=== PATIENT | female | born 1975 | race Hispanic/Latino ===

== ENCOUNTER 2020-11-09 18:38 | Inpatient (IN) | payer BC ==
[2020-11-09] MEDS ORDERED: METHYLPREDNISOLONE 125 MG INJ ONE (20:07)
[2020-11-09] MEDS ORDERED: NA CHLORIDE 0.9% 500 ML ONE (20:07)
--- NOTE | 2020-11-09 20:19 | RAD REPORT ---
EXAM DESCRIPTION: Yumi Single View11/09/2020 8:08 pm CLINICAL HISTORY: cough COMPARISON: none FINDINGS: [id number] bilateral pulmonary opacities. The heart is normal size IMPRESSION: [id number] bilateral pulmonary opacities probably pneumonia
[2020-11-09 20:36] LABS: Absolute Lymphocytes (CBC) 1.1 K/uL (0.7-4.9); Basophils % 0.1 % (0-1.3); Hematocrit 36.2 % (36.0-45.0); Lymphocytes % 14.6 % (15.3-44.8); MPV 8.4 fL (7.6-11.3); RBC Red Blood Cell Count 4.12 M/uL (3.86-4.86)
--- NOTE | 2020-11-09 20:58 | ER ---
Nurse's Notes [facility] – [place], [place] Name: Idalia Wilson Age: 45 yrs Sex: Female : 1975 Arrival Date: 11/09/2020 Time: 18:43 Bed 17 Private MD: Diagnosis: Pneumonia due to SARS-associated coronavirus;Hypoxemia;Dehydration Presentation: 11/09 18:49 Chief complaint: Patient states: SOB with extertion, 87 % on RA after walking to [facility] triage, took approximately 30 seconds to increase O2 to 95% on RA. Coronavirus screen: Client denies travel out of the [place] in the last 14 days. shortness of breath, Client presents with at least one sign or symptom that may indicate coronavirus-19. Standard/surgical mask placed on the client. Provider contacted for isolation considerations. Client reports previous positive COVID test result. Date of collection: November 05, 2020. Ebola Screen: No symptoms or risks identified at this time. Initial Sepsis Screen: Does the patient meet any 2 criteria? RR > 20 per min. HR > 90 bpm. Does the patient have a suspected source of infection? No. Patient's initial sepsis screen is negative. Risk Assessment: Do you want to hurt yourself or someone else? Patient reports no desire to harm self or others. Onset of symptoms was November 05, 2020. Care prior to arrival: None. 18:49 Method Of Arrival: Ambulatory [facility] 18:49 Acuity: GARRICK 2 [facility] RN RELIEF CHARGE: 18:52 LMP N/A - Hysterectomy [facility] Historical: - Allergies: 18:52 No Known Allergies; jl7 - PMHx: 18:52 Hypertensive disorder; Diabetes mellitus; jl7 - Immunization history:: Client reports receiving the 1st dose of the Covid vaccine, October 2020 Moderna. - Social history:: Smoking status: Patient denies any tobacco usage or history of. - Family history:: not pertinent. - Hospitalizations: : No recent hospitalization is reported. Screenin:39 Abuse screen: Denies threats or abuse. Denies injuries from another. Nutritional ms4 screening: No deficits noted. Tuberculosis screening: No symptoms or risk factors identified. Fall Risk None identified. Assessment: 20:39 Pain: Denies pain. Cardiovascular: Reports chest pain, shortness of breath, Rhythm is ms4 regular. Respiratory: Airway is patent Respiratory effort is labored, Breath sounds are diminished bilaterally. Vital Signs: 18:49 BP 110 / 62; Pulse 111; Resp 22; Temp 97.5; Pulse Ox 87% ; Weight 107.05 kg; Height 5 jl7 ft. 4 in. (162.56 cm); Pain 0/10; 20:41 BP 110 / 66; Pulse 90; Resp 22; Temp 98.4; Pulse Ox 98% 2 lpm ; Pain 0/10; ms4 18:49 Body Mass Index 40.51 (107.05 kg, 162.56 cm) jl7 ED Course: 18:43 Patient arrived in ED. as 18:52 Triage completed. jl7 18:52 Arm band placed on right wrist. jl7 18:57 Jai Lang MD is Attending Physician. rn 19:42 Jyoti Hua RN is Primary Nurse. ms4 19:42 BMP Sent. ms4 19:42 Blood Culture Adult (2) Sent. ms4 19:42 C-Reactive Protein Sent. ms4 19:42 CBC with Diff Sent. ms4 19:42 D-Dimer Sent. ms4 19:42 Ferritin Sent. ms4 19:42 Inserted saline lock: 20 gauge in right forearm, using aseptic technique. Blood ms4 collected. 20:07 CXR XRAY In Process Unspecified. EDMS 20:57 Baudilio Garza MD is Hospitalizing Provider. rn 11/10 00:13 Troponin (emerg Dept Use Only) Sent. ms4 Administered Medications: 11/09 19:49 Drug: SOLU-Medrol (methylPrednisoLONE) 125 mg Route: IVP; Site: right forearm; ms4 20:38 Follow up: Response: No adverse reaction ms4 19:49 Drug: NS 0.9% 500 ml Route: IV; Rate: bolus; Site: right forearm; ms4 20:38 Follow up: IV Intake: 500ml ms4 20:38 Follow up: Response: No adverse reaction ms4 11/10 00:18 Drug: Tussionex Pennkinetic ER (chlorpheniramine-hydrocodone) Suspension 5 ml Route: PO;ms4 00:18 Drug: Magnesium Sulfate 1 grams Route: IVPB; Infused Over: 1 hrs; Site: left ms4 antecubital; Intake: 11/09 20:38 IV: 500ml; Total: 500ml. ms4 Outcome: 20:58 Decision to Hospitalize by Provider. rn 11/11 18:04 Patient left the ED. ap3 Signatures: Dispatcher [employer] Magnolia Bowers Roman, MD MD rn Leal, Jahala RN RN jl7 Whit Cortes RN RN ap3 Jyoti Hua RN RN ms4
--- NOTE | 2020-11-09 20:59 | EDPHYS ---
Physician Documentation [facility] Name: Idalia Wilson Age: 45 yrs Sex: Female : 1975 Arrival Date: 11/09/2020 Time: 18:43 Bed 17 Private MD: ED Physician Jai Lang HPI: 11/09 19:19 This 45 yrs old Female presents to ER via Ambulatory with complaints of Cough, rn Shortness Of Breath - covid+. 19:19 The patient or guardian reports cough, difficulty breathing. Onset: The rn symptoms/episode began/occurred 1 week(s) ago. Severity of symptoms: At their worst the symptoms were moderate, in the emergency department the symptoms are unchanged. Modifying factors: The symptoms are alleviated by nothing, the symptoms are aggravated by exertion. Associated signs and symptoms: Pertinent positives: diarrhea, nausea, Cough, Pertinent negatives: chest pain, vomiting. The patient has not experienced similar symptoms in the past. The patient has been recently seen by a physician:. Reports symptoms for 1 week, tested positive for Covid over the weekend, worsening shortness of breath especially with exertion. Has diabetes and hypertension but no chronic lung issues.. 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 - Social history:: Smoking status: Patient denies any tobacco usage or history of. - Family history:: not pertinent. - Hospitalizations: : No recent hospitalization is reported. ROS: 19:19 Constitutional: Positive for chills Eyes: Negative for injury, pain, redness, and academic intern, ENT: Positive for congestion Cardiovascular: Negative for chest pain, palpitations, and edema, Respiratory: Positive for cough and shortness of breath Abdomen/GI: Positive for positive for nausea and diarrhea : Negative for injury, bleeding, discharge, and swelling, MS/Extremity: Negative for injury and deformity, Skin: Negative for injury, rash, and discoloration, Neuro: Positive for generalized weakness no focal neurological deficits 19:19 All other systems are negative. Exam: 19:19 Constitutional: This is a well developed, well nourished patient who is awake, alert, rn mild tachypnea Head/Face: Normocephalic, atraumatic. Eyes: Pupils equal round and reactive to light, extra-ocular motions intact. Lids and lashes normal. Conjunctiva and sclera are non-icteric and not injected. Cornea within normal limits. Periorbital areas with no swelling, redness, or edema. ENT: No stridor Cardiovascular: Tachycardic, regular Respiratory: Mild tachypnea no retractions Abdomen/GI: Soft, non-tender Skin: Warm, dry, no cyanosis MS/ Extremity: Pulses equal, no cyanosis. Neurovascular intact. Full, normal range of motion. Equal circumference. Neuro: Awake and alert, GCS 15 20:36 ECG was reviewed by the Attending Physician. rn Vital Signs: 18:49 BP 110 / 62; Pulse 111; Resp 22; Temp 97.5; Pulse Ox 87% ; Weight 107.05 kg; Height 5 jl7 ft. 4 in. (162.56 cm); Pain 0/10; 20:41 BP 110 / 66; Pulse 90; Resp 22; Temp 98.4; Pulse Ox 98% 2 lpm ; Pain 0/10; ms4 18:49 Body Mass Index 40.51 (107.05 kg, 162.56 cm) jl7 MDM: 18:57 Patient medically screened. rn 20:54 Differential Diagnosis: Bronchitis Upper Respiratory Infection Viral Syndrome Pneumonia.rn 20:56 Data reviewed: vital signs, nurses notes, lab test result(s), EKG, radiologic studies, rn plain films, and as a result, I will admit patient. Data interpreted: monitor worker: rate is 90 beats/min, rhythm is normal sinus rhythm, regular, with no ectopy, Interpretation: normal rate, normal rhythm, Pulse oximetry: on room air is 87 %. Interpretation: hypoxia. Plan: O2 by NC applied. Test interpretation: by ED physician or midlevel provider: ECG, plain radiologic studies, Chest x-ray with bilateral pulmonary opacities consistent with Covid pneumonia. Counseling: I had a detailed discussion with the patient and/or guardian regarding: the historical points, exam findings, and any diagnostic results supporting the discharge/admit diagnosis, lab results, radiology results, the need for further work-up and treatment in the hospital. Response to treatment: the patient's symptoms have mildly improved after treatment, and as a result, I will admit patient. Admission orders: after a detailed discussion of the patient's condition and case, the admit orders are written by me. ED course: Patient with Covid pneumonia, tachypnea, hypoxemia. Will admit to hospitalist service for further care.. 11/10 00:08 ED course: Patient all of a sudden began to complain of increased shortness of breath rn and increased cough. Became diaphoretic. EKG, troponin and CT PE protocol added.. 11/09 19:09 Order name: BMP rn 11/09 19:09 Order name: Blood Culture Adult (2) 11/09 19:09 Order name: C-Reactive Protein 11/09 19:09 Order name: CBC with Diff 11/09 19:09 Order name: D-Dimer 11/09 19:09 Order name: Ferritin 11/09 19:09 Order name: LFT's; Complete Time: 23:54 11/09 19:09 Order name: Lactate; Complete Time: 23:54 11/09 19:09 Order name: PT-INR; Complete Time: 23:54 11/09 19:09 Order name: Procalcitonin; Complete Time: 23:54 11/09 19:09 Order name: Ptt, Activated; Complete Time: 23:54 11/09 19:09 Order name: Troponin (emerg Dept Use Only); Complete Time: 23:54 11/09 19:10 Order name: Basic Metabolic Panel; Complete Time: 23:54 EDOR 11/09 19:10 Order name: Blood Culture [facility] 11/09 19:10 Order name: C-Reactive Protein; Complete Time: 23:54 EDOR 11/09 19:10 Order name: CBC with Automated Diff; Complete Time: 23:54 EDOR 11/09 19:10 Order name: D-Dimer; Complete Time: 23:54 EDOR 11/09 19:10 Order name: Ferritin; Complete Time: 23:54 EDOR 11/10 00:06 Order name: Troponin (emerg Dept Use Only) rn 11/10 00:10 Order name: Procalcitonin; Complete Time: 01:06 EDOR 11/10 00:25 Order name: Troponin (Emerg Dept Use Only); Complete Time: 01:06 EDOR 11/10 04:01 Order name: CBC with Automated Diff EDMS 11/10 04:46 Order name: Comprehensive Metabolic Panel EDMS 11/10 04:46 Order name: Phosphorus EDMS 11/10 04:46 Order name: Lipid Profile EDMS 11/10 04:46 Order name: C-Reactive Protein EDMS 11/10 04:46 Order name: T4 Free EDMS 11/10 04:46 Order name: Magnesium EDMS 11/10 04:46 Order name: Thyroid Stimulating Hormone EDMS 11/10 04:46 Order name: Ferritin EDMS 11/09 19:09 Order name: CXR XRAY; Complete Time: 20:20 rn 11/09 19:09 Order name: EKG; Complete Time: 19:10 rn 11/09 19:09 Order name: Cardiac monitoring; Complete Time: 19:42 rn 11/09 19:09 Order name: Droplet/Contact Precautions; Complete Time: 19:23 rn 11/09 19:09 Order name: EKG - Nurse/Tech; Complete Time: 19:23 rn 11/09 19:09 Order name: IV Start; Complete Time: 19:42 rn 11/09 19:09 Order name: Labs collected and sent; Complete Time: 19:42 rn 11/09 19:09 Order name: O2 Per Protocol; Complete Time: 19:23 rn 11/09 19:09 Order name: O2 Sat Monitoring; Complete Time: 19:23 rn 11/09 21:22 Order name: CONS Physician Consult EDMS 11/10 00:06 Order name: CT Chest For PE Angio rn 11/10 00:06 Order name: EKG; Complete Time: 00:07 rn 11/10 00:06 Order name: EKG - Nurse/Tech; Complete Time: 00:12 rn 11/10 04:51 Order name: Manual Differential EDMS 11/10 08:05 Order name: Glucose, Ancillary Testing EDMS 11/10 11:44 Order name: CT EDMS 11/10 12:56 Order name: Glucose, Ancillary Testing EDMS 11/10 17:40 Order name: Glucose, Ancillary Testing EDMS 11/10 22:59 Order name: Glucose, Ancillary Testing EDMS 11/11 07:12 Order name: Hemoglobin A1c EDMS 11/11 08:21 Order name: Glucose, Ancillary Testing EDMS 11/11 08:55 Order name: CBC with Automated Diff EDMS 11/11 09:26 Order name: Basic Metabolic Panel EDMS 11/11 09:26 Order name: C-Reactive Protein EDMS 11/11 09:26 Order name: Ferritin EDMS 11/11 09:27 Order name: RAD EDOR 11/11 12:41 Order name: Glucose, Ancillary Testing EDMS 11/11 16:56 Order name: Glucose, Ancillary Testing EDMS EC/11 20:36 Rate is 99 beats/min. Rhythm is regular. QRS [place] is Normal. OK interval is normal. QRS rn interval is normal. QT interval is normal. No Q waves. T waves are Normal. No ST changes noted. Clinical impression: Normal ECG. Interpreted by me. Reviewed by me. Administered Medications: 19:49 Drug: SOLU-Medrol (methylPrednisoLONE) 125 mg Route: IVP; Site: right forearm; ms4 20:38 Follow up: Response: No adverse reaction ms4 19:49 Drug: NS 0.9% 500 ml Route: IV; Rate: bolus; Site: right forearm; ms4 20:38 Follow up: IV Intake: 500ml ms4 20:38 Follow up: Response: No adverse reaction ms4 11/10 00:18 Drug: Tussionex Pennkinetic ER (chlorpheniramine-hydrocodone) Suspension 5 ml Route: PO;ms4 00:18 Drug: Magnesium Sulfate 1 grams Route: IVPB; Infused Over: 1 hrs; Site: left ms4 antecubital; Disposition Summary: 11/09/20 20:58 Hospitalization Ordered Hospitalization Status: Inpatient Admission rn Provider: Baudilio Garza rn Condition: Fair rn Problem: new rn Symptoms: have improved rn Bed/Room Type: Standard rn Location: [facility] ER HOLD(11/09/20 23:43) tl1 Room Assignment: ERHOLD-(11/09/20 23:43) tl1 Diagnosis - Pneumonia due to SARS-associated coronavirus rn - Hypoxemia rn - Dehydration rn Forms: - Medication Reconciliation Form rn - SBAR form rn Signatures: Dispatcher [employer] [facility] Jai Lang MD MD rn Lasagna, Tonya, RN RN tl1 Chago Santos RN RN jl7 Jyoti Hua, RN RN ms4 Corrections: (The following items were deleted from the chart) 11/09 19:30 19:19 Constitutional: This is a well developed, well nourished patient who is awake, rn alert, mild tachypnea Head/Face: Normocephalic, atraumatic. Eyes: Pupils equal round and reactive to light, extra-ocular motions intact. Lids and lashes normal. Conjunctiva and sclera are non-icteric and not injected. Cornea within normal limits. Periorbital areas with no swelling, redness, or edema. ENT: No stridor Cardiovascular: Tachycardic, regular Respiratory: Mild tachypnea no retractions Abdomen/GI: Soft, non-tender Skin: Warm, dry, no cyanosis MS/ Extremity: Pulses equal, no cyanosis. Neurovascular intact. Full, normal range of motion. Equal circumference. Neuro: Awake and alert, GCS 15 rn 23:43 20:58 Telemetry/MedSurg (Inpatient) rn tl1 23:43 20:58 rn tl1
[2020-11-09 21:02] LABS: Protime INR 1.15
[2020-11-09 21:22] LABS: ALT/SGPT 68 U/L (12-78); AST/SGOT 55 U/L (15-37); Albumin 3.3 g/dL (3.4-5.0); Alkaline Phosphatase 71 U/L (45-117); BUN Blood Urea Nitrogen 8 mg/dL (7-18); Bicarbonate 25 mmol/L (21-32); Bilirubin Direct 0.3 mg/dL (0-0.2); Bilirubin Total 0.5 mg/dL (0.2-1.0); Glucose Level 275 mg/dL (74-106); Potassium 3.5 mmol/L (3.5-5.1); Protein, Total 8.4 g/dL (6.4-8.2); Sodium Level 131 mmol/L (136-145); Troponin (Emerg Dept Use Only) < 0.02 ng/mL (0.0-0.045)
[2020-11-09 22:16] VITALS: BMI 40.5
[2020-11-09] MEDS ORDERED: MELATONIN 5 MG TABLET PO PRN (22:16)
[2020-11-09] MEDS ORDERED: ONDANSETRON 4 MG/2 ML VIAL IV PRN (22:16)
[2020-11-09] MEDS ORDERED: ACETAMINOPHEN 500 MG TAB PO PRN (22:16)
[2020-11-09] MEDS ORDERED: ALBUTEROL 2.5 MG/3 ML NEB SOL NEB PRN (22:16)
[2020-11-09] MEDS ORDERED: MORPHINE 2 MG/ML SYR IV PRN (22:16)
[2020-11-09 22:18] LABS: Ferritin 921.6 ng/mL (8-388)
--- NOTE | 2020-11-09 22:19 | P.HP ---
Certification for Inpatient Patient admitted to: Inpatient With expected LOS: >2 Midnights Patient will require the following post-hospital care: None Practitioner: I am a practitioner with admitting privileges, knowledge of patient current condition, hospital course, and medical plan of care. Services: Services provided to patient in accordance with Admission requirements found in Title 42 Section 412.3 of the Code of Federal Regulations <Wander Chung - Last Filed: 11/09/20 22:13> Patient History Date of Service: 11/09/20 Primary Care Provider: Ulysses Reason for admission: covid pneumonia History of Present Illness: Ms. Wilson is a 45 yo F with DM and HTN who presents with 1 week of cough and SO B. She tested positive for COVID on 11/05. Initial sats 87% on room air, now 98% on 2L O2. She reports WEISS, fever, nausea, anorexia, diarrhea. Denies wheezing and pleurtic pain. CXR shows mild to moderate bilateral pulmonary opacities probably pneumonia. Na 131, Cl 97, Glu 275, Dbili 0.3, AST 55, CRP 252. - Past Medical/Surgical History Diabetic: Yes -: DM -: HTN -: C section -: hysterectomy - Family History Mother -: Liver disease Father -: Cancer Sister -: Kidney disease - Social History Smoking Status: Never smoker Alcohol use: No CD- Drugs: No Caffeine use: No Place of Residence: Home <Wander Chung - Last Filed: 11/09/20 22:13> Date of Service: 11/09/20 <Baudilio Garza - Last Filed: 11/11/20 07:06> Allergies meperidine HCl [From Demerol] Allergy (Mild, Verified 11/24/11 16:01) Hives Review of Systems General: Fever, Chills, Sweats, Weakness, Malaise Respiratory: Cough, Shortness of Breath, SOB with Excertion Gastrointestinal: Nausea, Diarrhea <Wander Chung Alexander - Last Filed: 11/09/20 22:13> Physical Examination - Physical Exam General: Alert, In no apparent distress HEENT: Atraumatic, PERRLA, Mucous membr. moist/pink, EOMI, Sclerae nonicteric Neck: Supple, 2+ carotid pulse no bruit, No LAD, Without JVD or thyroid abnormality Respiratory: Diminished, Expiratory wheezes Cardiovascular: Regular rate/rhythm, Normal S1 S2 Gastrointestinal: Normal bowel sounds, No tenderness Musculoskeletal: No tenderness Integumentary: No rashes Neurological: Normal gait, Normal speech, Normal strength at 5/5 x4 extr, Normal tone, Normal affect Lymphatics: No axilla or inguinal lymphadenopathy - Studies Laboratory Data (last 24 hrs) 11/09/20 19:36: WBC 7.30, Hgb 12.3, Hct 36.2, Plt Count 225 11/09/20 19:36: Sodium 131 L, Potassium 3.5, BUN 8, Creatinine 0.71, Glucose 275 H, Total Bilirubin 0.5, AST 55 H, ALT 68, Alkaline Phosphatase 71 11/09/20 09:19: PT 13.3 H, INR 1.15, APTT 29.5 <Wander Chung - Last Filed: 11/09/20 22:13> Assessment and Plan - Problems (Diagnosis) (1) Pneumonia due to COVID-19 virus Current Visit: Yes Status: Acute (2) Diabetes Current Visit: Yes Status: Chronic Qualifiers: Diabetes mellitus type: type 2 Diabetes mellitus group home insulin use: without group home use Diabetes mellitus complication status: without complication Qualified Code(s): E11.9 - Type 2 diabetes mellitus without complications (3) HTN (hypertension) Current Visit: Yes Status: Chronic Qualifiers: Hypertension type: primary hypertension Qualified Code(s): I10 - Essential (primary) hypertension - Plan pulm consulted, respiratory consulted continue O2 as needed continue IV steroids, covid supplements, ivermectin BP stable, continue to monitor Accuchecks and sliding scale insulin DVT ppx Discharge Plan: Home Plan to discharge in: 48 Hours - Advance Directives Does patient have a Living Will: No Does patient have a Durable POA for Healthcare: No - Code Status/Comfort Care Code Status Assessed: Yes (full code ) Critical Care: No Time Spent Managing Pts Care (In Minutes): 70 <Wander Chung - Last Filed: 11/09/20 22:13> - Problems (Diagnosis) (1) Hypoxemia Current Visit: Yes Status: Acute (2) Pneumonia due to COVID-19 virus Current Visit: Yes Status: Acute (3) Diabetes Current Visit: Yes Status: Chronic Qualifiers: Diabetes mellitus type: type 2 Diabetes mellitus group home insulin use: without group home use Diabetes mellitus complication status: without complication Qualified Code(s): E11.9 - Type 2 diabetes mellitus without complications (4) HTN (hypertension) Current Visit: Yes Status: Chronic Qualifiers: Hypertension type: primary hypertension Qualified Code(s): I10 - Essential (primary) hypertension <Baudilio Garza - Last Filed: 11/11/20 07:06> Date of Service: 11/10/20 Subjective Agree with plan of care as mentioned above Review of Systems 10-point ROS is otherwise unremarkable Physical Examination - Vital Signs Reviewed - Physical Exam General: Alert, In no apparent distress, Oriented x3 Respiratory: Diminished Cardiovascular: Regular rate/rhythm, Normal S1 S2, No murmurs Gastrointestinal: Normal bowel sounds, Soft and benign, Non-distended, No tenderness Musculoskeletal: No clubbing, No swelling, No tenderness Neurological: Sensation intact, Cranial nerves 3-12 intact - Studies Medications List Reviewed: Yes Assessment & Plan - Problems (Diagnosis) (1) Hypoxemia Current Visit: Yes Status: Acute (2) Pneumonia due to COVID-19 virus Current Visit: Yes Status: Acute (3) Diabetes Current Visit: Yes Status: Chronic Qualifiers: Diabetes mellitus type: type 2 Diabetes mellitus manager long term care insulin use: without group home use Diabetes mellitus complication status: without complication Qualified Code(s): E11.9 - Type 2 diabetes mellitus without complications (4) HTN (hypertension) Current Visit: Yes Status: Chronic Qualifiers: Hypertension type: primary hypertension Qualified Code(s): I10 - Essential (primary) hypertension - Plan 1. Continue with IV steroids at this time. Arrange for home oxygen. 2. Monitor inflammatory markers 3. Repeat chest x-ray 4. O2 per protocol 5. Strict blood pressure and blood sugar control 6. Continue with albuterol inhaler therapy; also supportive care 7. GI and DVT prophylaxis Discharge Plan: Home Plan to discharge in: Greater than 2 days - Advance Directives Does patient have a Living Will: No Does patient have a Durable POA for Healthcare: No - Code Status/Comfort Care Code Status Assessed: Yes Code Status: Full Code Critical Care: No Time Spent Managing PTS Care (In Minutes): 35 <Baudilio Garzazal - Last Filed: 11/11/20 07:06>
[2020-11-10] MEDS ORDERED: HYDROCODONE/CHLORPHEN 5 ML/OSYR ONE (00:37)
[2020-11-10] MEDS ORDERED: Magnesium Sulfate 2gm IVPB 2 G/50 ML BAG IV ONE (00:38)
[2020-11-10 03:55] LABS: Absolute Lymphocytes (CBC) 0.5 K/uL (0.7-4.9); Basophils % 0.1 % (0-1.3); Hematocrit 35.7 % (36.0-45.0); Lymphocytes % 7.7 % (15.3-44.8); MPV 8.1 fL (7.6-11.3); RBC Red Blood Cell Count 3.98 M/uL (3.86-4.86)
[2020-11-10 04:45] LABS: ALT/SGPT 66 U/L (12-78); AST/SGOT 48 U/L (15-37); Alkaline Phosphatase 75 U/L (45-117); BUN Blood Urea Nitrogen 11 mg/dL (7-18); Bicarbonate 23 mmol/L (21-32); Bilirubin Total 0.5 mg/dL (0.2-1.0); Ferritin 921.7 ng/mL (8-388); Glucose Level 359 mg/dL (74-106); HDL Cholesterol 25 mg/dL (40-60); LDL Cholesterol, Calculated 107 (<130); Magnesium 2.6 mg/dL (1.8-2.4); Phosphorus 3.7 mg/dL (2.5-4.9); Potassium 4.2 mmol/L (3.5-5.1); Protein, Total 8.3 g/dL (6.4-8.2); Sodium Level 132 mmol/L (136-145)
[2020-11-10 04:49] LABS: Blood Morphology Comment NOT SEEN (NOT SEEN); Platelet Estimate ADEQ
[2020-11-10] MEDS ORDERED: KCL 20 MEQ/100 mL IVPB 20 MEQ/100 ML BAG IV SCH (06:00)
[2020-11-10] MEDS: INSULIN -REGULAR HUMAN 50 UNIT/0.5 ML ML SQ SCH ×4 (07:30→21:00)
[2020-11-10] MEDS ORDERED: THIAMINE HCL 100 MG TABLET ONE (08:48)
[2020-11-10] MEDS ORDERED: ASCORBIC ACID 500 MG TABLET ONE ×4 (08:48→20:39)
[2020-11-10] MEDS ORDERED: VITAMIN D 1000 UNIT TAB ONE (08:49)
[2020-11-10] MEDS ORDERED: FAMOTIDINE 20 MG TAB ONE ×2 (08:49→20:39)
[2020-11-10] MEDS ORDERED: ZINC SULFATE 220 MG CAP ONE (08:49)
[2020-11-10] MEDS ORDERED: METHYLPREDNISOLONE 40 MG INJ ONE (08:49)
[2020-11-10] MEDS ORDERED: ENOXAPARIN 40 MG/0.4 ML SQ ONE (08:51)
[2020-11-10] MEDS ORDERED: INSULIN -REGULAR HUMAN 50 UNIT/0.5 ML ML ONE ×4 (08:51→20:40)
[2020-11-10] MEDS: ENOXAPARIN 40 MG/0.4 ML SQ SCH (08:52)
[2020-11-10] MEDS: METHYLPREDNISOLONE 125 MG INJ IV SCH ×2 (08:52→21:00)
[2020-11-10] MEDS: VITAMIN D 1000 UNIT TAB PO SCH (08:52)
[2020-11-10] MEDS: FAMOTIDINE 20 MG TAB PO SCH ×2 (08:52→21:00)
[2020-11-10] MEDS: THIAMINE HCL 100 MG TABLET PO SCH (08:52)
[2020-11-10] MEDS: ASCORBIC ACID 500 MG TABLET PO SCH ×4 (08:52→21:00)
[2020-11-10] MEDS: ZINC SULFATE 220 MG CAP PO SCH (08:52)
[2020-11-10] MEDS: ASPIRIN EC 81 MG TAB PO SCH (09:00)
[2020-11-10] MEDS ORDERED: IVERMECTIN 3 MG TABLET PO SCH (09:00)
[2020-11-10] MEDS: BENZONATATE 100 MG CAP PO PRN ×2 (09:23→22:05)
[2020-11-10] MEDS ORDERED: BENZONATATE 100 MG CAP PO ONE ×2 (09:41→22:27)
--- NOTE | 2020-11-10 11:11 | P.CNS ---
Date of Consult: 11/10/20 Reason for Consult: ALICE beasley Primary Care Provider: Ulysses Chief Complaint: covid pneumonia History of Present Illness: Age 45 with metablic synd AW cough and sob/AW resp faiure/ fever /norexia Allergies meperidine HCl [From Demerol] Allergy (Mild, Verified 11/24/11 16:01) Hives - Past Medical/Surgical History Diabetic: Yes -: DM -: HTN -: C section -: hysterectomy - Family History Mother Medical History: Liver disease Father Medical History: Cancer Sister Medical History: Kidney disease - Social History Alcohol use: No CD- Drugs: No Caffeine use: No Place of Residence: Home Review of Systems General: Weakness, Malaise Physical Examination Temp Pulse Resp BP Pulse Ox 98.3 F 86 24 H 114/73 95 11/10/20 08:00 11/10/20 08:00 11/10/20 08:00 11/10/20 08:00 11/10/20 08:00 General: Alert, In no apparent distress, Oriented x3 Laboratory Data (last 24 hrs) 11/09/20 19:36: WBC 7.30, Hgb 12.3, Hct 36.2, Plt Count 225 11/09/20 19:36: Sodium 131 L, Potassium 3.5, BUN 8, Creatinine 0.71, Glucose 275 H, Total Bilirubin 0.5, AST 55 H, ALT 68, Alkaline Phosphatase 71 11/09/20 09:19: PT 13.3 H, INR 1.15, APTT 29.5 - Problems (1) Pneumonia due to COVID-19 virus Current Visit: Yes Status: Acute Plan: Age 45 AW covid pneumonia/ Pn nasal cannula/ poss DC home am/ minimla changes on CT
--- NOTE | 2020-11-10 11:43 | RAD REPORT ---
EXAM DESCRIPTION: CT - Chest For Pe Angio - 11/10/2020 6:32 am CLINICAL HISTORY: CHEST PAIN. COMPARISON: None. TECHNIQUE: CTA of the chest was performed following intravenous administration of iodinated contrast . Axial soft tissue and lung window, and coronal and sagittal soft tissue window reconstructions were created and sent to PACS. 3D postprocessing was performed on an independent workstation, with images sent to PACS for subsequen t review. This exam was performed according to our departmental dose-optimization program, which includes autom ated exposure control, adjustment of the mA and/or kV according to patient size and/or use of iterati ve reconstruction technique. FINDINGS: Vascular: The pulmonary arteries are adequately opacified to the lobar level. No CT eviden ce of acute pulmonary thromboembolism. No evidence of aortic aneurysm or dissection. Lungs and pleura: Numerous small regions of groundglass opacification and interstitial thickening thr oughout the lungs, with a peripheral predominance. Mild motion degradation through the lung bases. No pleural effusion. No pneumothorax. Mediastinum and neck: No mediastinal lymphadenopathy by CT size criteria. Unremarkable appearance of the thyroid gland. Cardiac: No cardiomegaly or pericardial effusion. Abdomen: Diffuse hepatic steatosis. Musculoskeletal: No concerning osseous abnormality. IMPRESSION: 1. No CTA evidence of acute pulmonary thromboembolism. 2. Numerous small regions of groundglass opacification and interstitial thickening throughout the l ungs, with a peripheral predominance. Correlate for infectious/inflammatory etiology. 3. Diffuse hepatic steatosis. Electronically signed by: Erlinda Calvin MD 11/10/2020 1:01 AM CDT Due to temporary technical issues with the PACS/Fluency reporting system, reports are being signed by the in house radiologist without review as a courtesy to ensure prompt reporting. The interpreting r adiologist is fully responsible for the content of the report.
[2020-11-10] MEDS ORDERED: ASPIRIN 81 MG CHEWABLE TABLET ONE (13:14)
[2020-11-10] MEDS ORDERED: METHYLPREDNISOLONE 125 MG INJ ONE (20:38)
[2020-11-10] MEDS ORDERED: MELATONIN 5 MG TABLET PO ONE (22:27)
[2020-11-11 05:49] VITALS: TEMP 97.8
--- NOTE | 2020-11-11 07:05 | P.PN ---
Subjective Date of Service: 11/10/20 Patient is a 45-year-old female who presented to the hospital with hypoxemia. She was diagnosed in [place] a week ago. She is band doing okay but she has notice her oxygen level going down. She decided to come into the emergency room for further evaluation. She has been having some pleuritic chest pain. CT of the chest was negative. She has got 1 dose of the vaccine. She believes it with the Moderna. She is requiring 4 L of oxygen. Will try to get home oxygen setup an as long as there are no changes in her labs in her x-ray I anticipate discharge home in the morning. Will also monitor her inflammatory markers. Imaging studies with inflammatory changes. Will continue to monitor. Review of Systems 10-point ROS is otherwise unremarkable Physical Examination - Vital Signs Temperature: 97.8 F Blood Pressure: 110/86 Pulse: 72 Respirations: 20 Pulse Ox (%): 92 - Physical Exam General: Alert, In no apparent distress, Oriented x3 Respiratory: Diminished Cardiovascular: Regular rate/rhythm, Normal S1 S2, No murmurs Gastrointestinal: Normal bowel sounds, Soft and benign, Non-distended, No tenderness Musculoskeletal: No clubbing, No swelling, No tenderness Neurological: Sensation intact, Cranial nerves 3-12 intact - Studies Medications List Reviewed: Yes Assessment & Plan - Problems (Diagnosis) (1) Hypoxemia Current Visit: Yes Status: Acute (2) Pneumonia due to COVID-19 virus Current Visit: Yes Status: Acute (3) Diabetes Current Visit: Yes Status: Chronic Qualifiers: Diabetes mellitus type: type 2 Diabetes mellitus intermediate frame tender insulin use: without snf use Diabetes mellitus complication status: without complication Qualified Code(s): E11.9 - Type 2 diabetes mellitus without complications (4) HTN (hypertension) Current Visit: Yes Status: Chronic Qualifiers: Hypertension type: primary hypertension Qualified Code(s): I10 - Essential (primary) hypertension - Plan 1. Continue with IV steroids 2. Monitor inflammatory markers 3. Repeat chest x-ray 4. O2 per protocol 5. Strict blood pressure and blood sugar control 6. Continue with albuterol inhaler therapy; also supportive care 7. Resume antidepressant 8. Encourage patient to get her anti by his level checked in 3-6 months to see if she needs to get her 2nd dose of vaccine. 9. GI and DVT prophylaxis Discharge Plan: Home Plan to discharge in: Greater than 2 days - Advance Directives Does patient have a Living Will: No Does patient have a Durable POA for Healthcare: No - Code Status/Comfort Care Code Status Assessed: Yes Code Status: Full Code Critical Care: No Time Spent Managing PTS Care (In Minutes): 35
[2020-11-11] MEDS: INSULIN -REGULAR HUMAN 50 UNIT/0.5 ML ML SQ SCH ×2 (07:30→11:30)
[2020-11-11] MEDS ORDERED: METFORMIN HCL 500 MG TAB PO SCH (08:00)
[2020-11-11] MEDS ORDERED: GLIMEPIRIDE 2 MG TABLET PO SCH (08:00)
[2020-11-11] MEDS ORDERED: INSULIN -REGULAR HUMAN 50 UNIT/0.5 ML ML ONE ×3 (08:42→17:22)
[2020-11-11] MEDS ORDERED: METFORMIN HCL 500 MG TAB ONE ×2 (08:44→17:21)
[2020-11-11] MEDS ORDERED: ASCORBIC ACID 500 MG TABLET ONE ×3 (08:44→17:21)
[2020-11-11] MEDS ORDERED: VITAMIN D 1000 UNIT TAB ONE (08:45)
[2020-11-11] MEDS ORDERED: METHYLPREDNISOLONE 40 MG INJ ONE (08:45)
[2020-11-11] MEDS ORDERED: ASPIRIN EC 81 MG TAB PO ONE (08:45)
[2020-11-11] MEDS ORDERED: FAMOTIDINE 20 MG TAB ONE (08:45)
[2020-11-11] MEDS ORDERED: ZINC SULFATE 220 MG CAP ONE (08:45)
[2020-11-11] MEDS ORDERED: ENOXAPARIN 40 MG/0.4 ML SQ ONE (08:46)
[2020-11-11 08:50] LABS: Absolute Lymphocytes (CBC) 1.2 K/uL (0.7-4.9); Basophils % 0.1 % (0-1.3); Hematocrit 35.4 % (36.0-45.0); Lymphocytes % 10.7 % (15.3-44.8); MPV 8.1 fL (7.6-11.3); RBC Red Blood Cell Count 3.96 M/uL (3.86-4.86)
[2020-11-11] MEDS: ASCORBIC ACID 500 MG TABLET PO SCH ×2 (09:00→12:44)
[2020-11-11] MEDS ORDERED: PARoxetine HCL 10 MG TAB PO SCH (09:00)
[2020-11-11] MEDS ORDERED: LOSARTAN POTASSIUM 50 MG TABLET PO SCH (09:00)
[2020-11-11] MEDS: ZINC SULFATE 220 MG CAP PO SCH (09:00)
[2020-11-11] MEDS: THIAMINE HCL 100 MG TABLET PO SCH (09:00)
[2020-11-11] MEDS: ASPIRIN EC 81 MG TAB PO SCH (09:00)
[2020-11-11] MEDS: METHYLPREDNISOLONE 125 MG INJ IV SCH (09:00)
[2020-11-11] MEDS: FAMOTIDINE 20 MG TAB PO SCH (09:00)
[2020-11-11] MEDS: ENOXAPARIN 40 MG/0.4 ML SQ SCH (09:00)
[2020-11-11] MEDS: VITAMIN D 1000 UNIT TAB PO SCH (09:00)
[2020-11-11 09:25] LABS: Ferritin 1011.7 ng/mL (8-388); Potassium 4.5 mmol/L (3.5-5.1)
--- NOTE | 2020-11-11 09:26 | RAD REPORT ---
EXAM DESCRIPTION: RAD - Chest Single View - 11/11/2020 8:11 am CLINICAL HISTORY: pneumonia Chest pain. COMPARISON: Chest Single View dated 11/09/2020 FINDINGS: Portable technique limits examination quality. Mild bilateral pulmonary opacities are unchanged since comparative study dated 11/09/2020. The heart is normal in size. No displaced fractures.
[2020-11-11 11:34] VITALS: O2SAT 93
[2020-11-11 16:48] VITALS: BP 115/68
[2020-11-11] MEDS ORDERED: BENZONATATE 100 MG CAP PO ONE (17:22)
--- NOTE | 2020-11-14 10:13 | P.DS ---
Discharge Date: 11/11/20 Primary Care Provider: Ulysses Disposition: ROUTINE DISCHARGE Discharge Condition: GOOD Reason for Admission: covid pneumonia - Problems (1) Hypoxemia Status: Acute (2) Pneumonia due to COVID-19 virus Status: Acute (3) Diabetes Status: Chronic Qualifiers: Diabetes mellitus type: type 2 Diabetes mellitus detention insulin use: without detention use Diabetes mellitus complication status: without complication Qualified Code(s): E11.9 - Type 2 diabetes mellitus without complications (4) HTN (hypertension) Status: Chronic Qualifiers: Hypertension type: primary hypertension Qualified Code(s): I10 - Essential (primary) hypertension Brief History of Present Illness: Patient is a 45-year-old female who came to the hospital with COVID-19 Pneumonia. Patient has been vaccinated and she is only requiring 4 L of oxygen. She actually only received 1 of the Moderna vaccination. However, she is doing well and she will be admitted for inpatient hospitalization. Hospital Course: Patient had done well during hospital stay. Clinically doing well and stable for discharge home. Vital Signs/Physical Exam: Temp Pulse Resp BP Pulse Ox 97.8 F 83 19 115/68 96 11/11/20 16:00 11/11/20 16:00 11/11/20 16:00 11/11/20 16:00 11/11/20 16:00 General: Alert, In no apparent distress, Oriented x3 Laboratory Data at Discharge: WBC 11.30 K/uL (4.3-10.9) H D 11/11/20 08:09 Hgb 11.8 g/dL (12.0-15.0) L 11/11/20 08:09 Hct 35.4 % (36.0-45.0) L 11/11/20 08:09 Plt Count 327 K/uL (152-406) D 11/11/20 08:09 PT 13.3 SECONDS (9.5-12.5) H 11/09/20 09:19 INR 1.15 11/09/20 09:19 APTT 29.5 SECONDS (24.3-36.9) 11/09/20 09:19 Sodium 133 mmol/L (136-145) L 11/11/20 08:09 Potassium 4.5 mmol/L (3.5-5.1) 11/11/20 08:09 BUN 24 mg/dL (7-18) H 11/11/20 08:09 Creatinine 0.76 mg/dL (0.55-1.3) 11/11/20 08:09 Glucose 385 mg/dL (74-106) H 11/11/20 08:09 Phosphorus 3.7 mg/dL (2.5-4.9) 11/10/20 03:25 Magnesium 2.6 mg/dL (1.8-2.4) H 11/10/20 03:25 Total Bilirubin 0.5 mg/dL (0.2-1.0) 11/10/20 03:25 AST 48 U/L (15-37) H 11/10/20 03:25 ALT 66 U/L (12-78) 11/10/20 03:25 Alkaline Phosphatase 75 U/L (45-117) 11/10/20 03:25 Triglycerides 181 mg/dL (<150) H 11/10/20 03:25 Cholesterol 168 mg/dL (<200) 11/10/20 03:25 HDL Cholesterol 25 mg/dL (40-60) L 11/10/20 03:25 Cholesterol/HDL Ratio 6.72 11/10/20 03:25 Home Medications: Losartan Potassium 1 tab PO DAILY 11/10/20 PARoxetine HCL [Paroxetine HCl] 1 tab PO DAILY 11/10/20 Albuterol Inhaler [Ventolin Inhaler*] 2 puff IH Q6H PRN #1 hfa.aer.ad 11/11/20 Albuterol Neb [Proventil 0.083% Neb Soln] 2.5 mg NEB Q6HP PRN #60 amp 11/11/20 Ascorbic Acid [Vitamin C*] 500 mg PO QID #60 tablet 11/11/20 Benzonatate [Tessalon Perle*] 100 mg PO TID PRN #30 cap 11/11/20 Cholecalciferol (Vitamin D3) [Vitamin D 1000 Iu Tab*] 4,000 unit PO DAILY #30 tab 11/11/20 Glimepiride [Amaryl] 1 mg PO DAILY #30 tablet 11/11/20 Guaifen W/Codeine Syrup [ROBITUSSIN A-C Syrup] 10 ml PO Q12H PRN #100 ml 11/11/20 Metformin HCl 500 mg PO BID #60 tablet 11/11/20 Rivaroxaban [Xarelto] 10 mg PO DAILY #20 tablet 11/11/20 Thiamine HCl [Vitamin B-1*] 200 mg PO DAILY #30 tablet 11/11/20 Zinc Sulfate [Zinc Sulfate*] 220 mg PO DAILY #30 cap 11/11/20 predniSONE [Prednisone*] 20 mg PO TID #21 tab 11/11/20 New Medications: Glimepiride [Amaryl] 1 mg PO DAILY #30 tablet Metformin HCl 500 mg PO BID #60 tablet predniSONE [Prednisone*] 20 mg PO TID #21 tab Albuterol Neb [Proventil 0.083% Neb Soln] 2.5 mg NEB Q6HP PRN #60 amp PRN Reason: Shortness Of Breath Guaifen W/Codeine Syrup [ROBITUSSIN A-C Syrup] 10 ml PO Q12H PRN #100 ml PRN Reason: Cough Benzonatate [Tessalon Perle*] 100 mg PO TID PRN #30 cap PRN Reason: Cough Albuterol Inhaler [Ventolin Inhaler*] 2 puff IH Q6H PRN #1 hfa.aer.ad PRN Reason: Shortness Of Breath Thiamine HCl [Vitamin B-1*] 200 mg PO DAILY #30 tablet Ascorbic Acid [Vitamin C*] 500 mg PO QID #60 tablet Cholecalciferol (Vitamin D3) [Vitamin D 1000 Iu Tab*] 4,000 unit PO DAILY #30 tab Rivaroxaban [Xarelto] 10 mg PO DAILY #20 tablet Zinc Sulfate [Zinc Sulfate*] 220 mg PO DAILY #30 cap Physician Discharge Instructions: OK TO DC IV AND DC HOME FOLLOW-UP WITH PRIMARY CARE PROVIDER IN 1-2 WEEKS FOLLOW-UP WITH Pulmonary IN 1-2 WEEKS RETURN TO THE ER IF symptoms worsen CALL or TEXT DR. GASTELUM AT [phone] IF ANY QUESTIONS REGARDING HOSPITAL STAY. PLEASE CALL THE FLOOR AT [phone] IF ANY MEDICATION OR NURSING QUESTIONS. Diet: AHA Activity: Fall precautions Followup: [place] MCPHERSON [Primary Care Provider] - Time spent managing pt's care (in minutes): 35
== END 2020-11-11 17:17 | disposition home or self-care (01) | DRG 177 ==
LOC: ER 18:38 → ERHOLD 21:53
PROVIDERS: ADMIT Hospitalist; ATTEND Hospitalist
DX: U07.1 COVID-19 (principal); J12.82 Pneumonia due to coronavirus disease 2019; R09.02 Hypoxemia; E11.9 Type 2 diabetes mellitus without complications; I10 Essential (primary) hypertension
CPT/HCPCS: 36415; 71045; 71275; 80048; 80053; 80061; 80076; 82728; 82947; 83036; 83605; 83735; 84100; 84145; 84439; 84443; 84484; 85025; 85379; 85610; 85730; 86140; 87040; 93005; 94760; 99284; J1650; J2920; J2930; J3475; J7040; Q9967

== ENCOUNTER 2021-09-12 01:44 | Emergency (ER) | payer BC ==
[2021-09-12 04:07] LABS: Absolute Lymphocytes (CBC) 2.7 K/uL (0.7-4.9); Hematocrit 39.5 % (36.0-45.0); MPV 8.5 fL (7.6-11.3); RBC Red Blood Cell Count 4.51 M/uL (3.86-4.86)
[2021-09-12] MEDS ORDERED: AMLODIPINE 5 MG TAB ONE (04:18)
[2021-09-12] MEDS ORDERED: DIPHENHYDRAMINE 50 MG/ML VIAL ONE (04:18)
[2021-09-12] MEDS ORDERED: METOCLOPRAMIDE 10 MG/2mL INJ ONE (04:18)
[2021-09-12] MEDS ORDERED: KETOROLAC 30 MG/ML INJ ONE (04:18)
[2021-09-12] MEDS ORDERED: NA CHLORIDE 0.9% 1,000 ML ONE (04:18)
[2021-09-12 05:42] LABS: Albumin 3.6 g/dL (3.4-5.0); Bilirubin Total 0.2 mg/dL (0.2-1.0); Potassium 3.9 mmol/L (3.5-5.1); Protein, Total 7.5 g/dL (6.4-8.2)
--- NOTE | 2021-09-12 06:22 | EDPHYS ---
Physician Documentation [facility] Name: Idalia Wilson Age: 46 yrs Sex: Female : 1975 Arrival Date: 09/12/2021 Time: 01:49 Bed 11 Private MD: Fahad Hartman HPI: 09/12 03:33 This 46 yrs old Female presents to ER via Ambulatory with complaints of cherrie Headache. 03:33 This 46 yrs old Female presents to ER via Ambulatory with complaints of cherrie Headache. 03:33 The patient complains of pain to the top of head, forehead, left frontal area and right cherrie frontal area. The patient describes the headache as aching, constant. Onset: The symptoms/episode began/occurred this morning. Associated signs and symptoms: Pertinent positives: nausea. Severity of symptoms: At its worst the pain was moderate, severe, this morning. Headache History: The patient has had previous headaches and this one is similar to previous episodes. The symptoms are alleviated by nothing. the symptoms are aggravated by alcohol. The patient has experienced similar episodes in the past, a few times. 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 - Social history:: Smoking status: Patient denies any tobacco usage or history of. ROS: 03:34 Constitutional: Negative for fever, chills, and weight loss, Eyes: Negative for injury, cherrie pain, redness, and discharge, ENT: Negative for injury, pain, and discharge, Neck: Negative for injury, pain, and swelling, Cardiovascular: Negative for chest pain, palpitations, and edema, Respiratory: Negative for shortness of breath, cough, wheezing, and pleuritic chest pain, Abdomen/GI: Negative for abdominal pain, nausea, vomiting, diarrhea, and constipation, Back: Negative for injury and pain, : Negative for injury, bleeding, discharge, and swelling, MS/Extremity: Negative for injury and deformity, Skin: Negative for injury, rash, and discoloration, Psych: Negative for depression, anxiety, suicide ideation, homicidal ideation, and hallucinations, Allergy/Immunology: Negative for hives, rash, and allergies, Endocrine: Negative for neck swelling, polydipsia, polyuria, polyphagia, and marked weight changes, Hematologic/Lymphatic: Negative for swollen nodes, abnormal bleeding, and unusual bruising. 03:34 Neuro: Positive for headache. Exam: 03:34 Constitutional: This is a well developed, well nourished patient who is awake, alert, cherrie and in no acute distress. Head/Face: Normocephalic, atraumatic. Eyes: Pupils equal round and reactive to light, extra-ocular motions intact. Lids and lashes normal. Conjunctiva and sclera are non-icteric and not injected. Cornea within normal limits. Periorbital areas with no swelling, redness, or edema. ENT: Nares patent. No nasal discharge, no septal abnormalities noted. Tympanic membranes are normal and external auditory canals are clear. Oropharynx with no redness, swelling, or masses, exudates, or evidence of obstruction, uvula midline. Mucous membranes moist. Neck: Trachea midline, no thyromegaly or masses palpated, and no cervical lymphadenopathy. Supple, full range of motion without nuchal rigidity, or vertebral point tenderness. No Meningismus. Chest/axilla: Normal chest wall appearance and motion. Nontender with no deformity. No lesions are appreciated. Cardiovascular: Regular rate and rhythm with a normal S1 and S2. No gallops, murmurs, or rubs. Normal PMI, no JVD. No pulse deficits. Respiratory: Lungs have equal breath sounds bilaterally, clear to auscultation and percussion. No rales, rhonchi or wheezes noted. No increased work of breathing, no retractions or nasal flaring. Abdomen/GI: Soft, non-tender, with normal bowel sounds. No distension or tympany. No guarding or rebound. No evidence of tenderness throughout. Back: No spinal tenderness. No costovertebral tenderness. Full range of motion. Skin: Warm, dry with normal turgor. Normal color with no rashes, no lesions, and no evidence of cellulitis. MS/ Extremity: Pulses equal, no cyanosis. Neurovascular intact. Full, normal range of motion. Neuro: Awake and alert, GCS 15, oriented to person, place, time, and situation. Cranial nerves II-XII grossly intact. Motor strength 5/5 in all extremities. Sensory grossly intact. Cerebellar exam normal. Normal gait. Psych: Awake, alert, with orientation to person, place and time. Behavior, mood, and affect are within normal limits. 03:34 Neuro: Orientation: is normal, appropriate for stated age, no acute changes, Mentation: is normal, appropriate for stated age, no acute changes, Memory: is normal, appropriate for stated age, no acute changes, Cranial nerves: grossly normal, is grossly normal based on the patient's age, no acute changes, Cerebellar function: is grossly normal, is grossly normal based on the patient's age, no acute changes, Motor: is normal, is grossly normal based on the patient's age, Sensation: is normal, no obvious gross deficits, appropriate no acute changes, Gait: is steady, appropriate for age, Deep tendon reflexes are 2+ (normal) in the bilateral brachioradialis, bicep, tricep and patellar and Achilles tendons, Babinski testing is normal, seizure activity, is not displayed by the patient. Vital Signs: 02:39 BP 161 / 79; Pulse 80; Resp 16 S; Temp 97.3(TE); Pulse Ox 99% on R/A; Weight 104.33 kg bb (R); Height 5 ft. 5 in. (165.10 cm) (R); Pain 10/10; 04:28 BP 137 / 83; Pulse 70; Resp 16 S; Pulse Ox 100% on R/A; bb 06:06 BP 150 / 82; Pulse 89; Resp 16 S; Pulse Ox 100% on R/A; bb 02:39 Body Mass Index 38.27 (104.33 kg, 165.10 cm) [place] Coma Score: 03:36 Eye Response: spontaneous(4). Verbal Response: oriented(5). Motor Response: obeys cherrie commands(6). Total: 15. MDM: 03:00 Patient medically screened. [facility] 03:36 Differential diagnosis: cluster headache, hypertensive headache, migraine, temporal cherrie arteritis, tension headache, trigeminal neuralgia, vasomotor headache. Data reviewed: vital signs, nurses notes, lab test result(s), radiologic studies, CT scan. 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 Test interpretation: by ED physician or midlevel provider:. Counseling: I had a detailed discussion with the patient and/or guardian regarding: the historical points, exam findings, and any diagnostic results supporting the discharge/admit diagnosis, lab results, radiology results, the need for outpatient follow up, for definitive care, a family practitioner, a neurosurgeon. 09/12 03:33 Order name: CBC with Diff [facility] 09/12 03:33 Order name: Comprehensive Metabolic Panel [facility] 09/12 03:33 Order name: CT Head Brain wo Cont cherrie 09/12 03:33 Order name: CT Head Angio [facility] 09/12 04:39 Order name: Neck Angio [facility] 09/12 03:33 Order name: Urine Dipstick-Ancillary (obtain specimen) cherrie Administered Medications: 04:27 Not Given (Hemodynamic Parameters): Norvasc (amlodipine) 5 mg PO once bb 04:27 Drug: NS 0.9% 500 ml Route: IV; Rate: bolus; Site: right forearm; bb 05:30 Follow up: IV Status: Completed infusion; IV Intake: 500ml bb 04:27 Drug: Ketorolac 30 mg Route: IVP; Site: right forearm; bb 05:59 Follow up: Response: No adverse reaction bb 05:59 Follow up: Response: No adverse reaction bb 04:27 Drug: Benadryl (diphenhydrAMINE) 50 mg Route: IVP; Site: right forearm; bb 05:59 Follow up: Response: No adverse reaction bb 04:27 Drug: Reglan (metoCLOPramide) 10 mg Route: IVP; Site: right forearm; bb 05:59 Follow up: Response: No adverse reaction bb Disposition Summary: 09/12/21 06:21 Discharge Ordered Location: Home cherrie Problem: new cherrie Symptoms: have improved cherrie Condition: Stable cherrie Diagnosis - Headache cherrie - Essential (primary) hypertension cherrie Followup: cherrie - With: Private Physician - When: 2 - 3 days - Reason: Recheck today's complaints, Continuance of care, Re-evaluation by your physician Followup: cherrie - With: - When: 2 - 3 days - Reason: Recheck today's complaints, Continuance of care, Re-evaluation by your physician Discharge Instructions: - Discharge Summary Sheet cherrie - General Headache Without Cause cherrie - Hypertension, Adult cherrie - Hypertension, Adult, [id number] cherrie - How to Take Your Blood Pressure, [id number] cherrie - General Headache Without Cause, [id number] cherrie - Managing Your Hypertension cherrie Forms: - Medication Reconciliation Form cherrie - Thank You Letter cherrie - Antibiotic Education cherrie - Prescription Opioid Use cherrie Prescriptions: - Fioricet with Codeine [id number] mg Oral capsule - take 1 capsule by ORAL route every 4 hours as needed not to exceed 6 capsules cherrie per 24hrs; 15 capsule; Refills: 0, Product Selection Permitted - Norvasc 5 mg Oral Tablet - take 1 tablet by ORAL route once daily; 20 tablet; Refills: 0, Product cherrie Selection Permitted - Zofran 4 mg Oral Tablet - take 1 tablet by ORAL route every 12 hours As needed; 20 tablet; Refills: 0, cherrie Product Selection Permitted Signatures: Dispatcher [employer] Fahad Suarez MD MD cha Ballard, Brenda, RN RN bb
--- NOTE | 2021-09-12 06:22 | ER ---
Nurse's Notes [facility] Name: Idalia Wilson Age: 46 yrs Sex: Female : 1975 Arrival Date: 09/12/2021 Time: 01:49 Bed 11 Private MD: Diagnosis: Headache;Essential (primary) hypertension Presentation: 09/12 02:39 Chief complaint: Patient states: she woke up tonight with a really bad headache has had bb similar headaches but this one is worse has never been woken up from sleep by a headache. Coronavirus screen: At this time, the client does not indicate any symptoms associated with coronavirus-19. Ebola Screen: No symptoms or risks identified at this time. Initial Sepsis Screen: Does the patient meet any 2 criteria? No. Patient's initial sepsis screen is negative. Does the patient have a suspected source of infection? No. Patient's initial sepsis screen is negative. Risk Assessment: Do you want to hurt yourself or someone else? Patient reports no desire to harm self or others. Onset of symptoms was September 12, 2021. 02:39 Method Of Arrival: Ambulatory bb 02:39 Acuity: GARRICK 3 bb Triage Assessment: 02:41 Headache History: The patient has had previous headaches and this one is more severe bb than previous episodes. General: Appears in no apparent distress. uncomfortable, Behavior is calm, cooperative. Pain: Complains of pain in headache Pain currently is 10 out of 10 on a pain scale. Pain began suddenly, Also complains of photophobia. Neuro: Level of Consciousness is awake, alert, obeys commands, Oriented to person, place, time, situation. Cardiovascular: Capillary refill < 3 seconds Patient's skin is warm and dry. Respiratory: Airway is patent Respiratory effort is even, unlabored, Respiratory pattern is regular. GI: No signs and/or symptoms were reported involving the gastrointestinal system. Derm: Skin is pink, warm \T\ dry. Musculoskeletal: Circulation, motion, and sensation intact. 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 - Social history:: Smoking status: Patient denies any tobacco usage or history of. Screenin:44 Abuse screen: Denies threats or abuse. Nutritional screening: No deficits noted. bb Tuberculosis screening: No symptoms or risk factors identified. Fall Risk None identified. Assessment: 02:44 Reassessment: No changes from previously documented assessment. see triage assessment. bb 04:28 Reassessment: Patient is alert, oriented x 3, equal unlabored respirations, skin bb warm/dry/pink. 06:06 Reassessment: Patient is alert, oriented x 3, equal unlabored respirations, skin bb warm/dry/pink. pt states pain is now 0/10 Patient states feeling better. Patient states symptoms have improved. 06:46 Reassessment: Patient is alert, oriented x 3, equal unlabored respirations, skin bb warm/dry/pink. pt verbalized understanding of and agrees to plan of care discharge instructions given pt ambulated with steady gait to exit. Vital Signs: 02:39 BP 161 / 79; Pulse 80; Resp 16 S; Temp 97.3(TE); Pulse Ox 99% on R/A; Weight 104.33 kg bb (R); Height 5 ft. 5 in. (165.10 cm) (R); Pain 10/10; 04:28 BP 137 / 83; Pulse 70; Resp 16 S; Pulse Ox 100% on R/A; bb 06:06 BP 150 / 82; Pulse 89; Resp 16 S; Pulse Ox 100% on R/A; bb 02:39 Body Mass Index 38.27 (104.33 kg, 165.10 cm) Loa Coma Score: 03:36 Eye Response: spontaneous(4). Verbal Response: oriented(5). Motor Response: obeys cherrie commands(6). Total: 15. ED Course: 01:49 Patient arrived in ED. ja2 02:41 Triage completed. bb 02:41 Arm band placed on Patient placed in an exam room, on a stretcher, on pulse oximetry. bb 02:44 Patient has correct armband on for positive identification. Bed in low position. Call bb light in reach. Side rails up X 1. 03:00 Fahad Guerrero MD is Attending Physician. cherrie 04:25 Inserted saline lock: 20 gauge in right forearm, using aseptic technique. Blood oe collected. 04:27 Sivan Boland, RN is Primary Nurse. bb 05:06 CT Head Brain wo Cont In Process Unspecified. EDMS 05:07 CT Head Angio In Process Unspecified. EDMS 05:07 Neck Angio In Process Unspecified. EDMS 06:21 Stef Rodriguez MD is Referral Physician. [facility] 06:47 No provider procedures requiring assistance completed. IV discontinued, intact, bb bleeding controlled, No redness/swelling at site. Pressure dressing applied. Administered Medications: 04:27 Not Given (Hemodynamic Parameters): Norvasc (amlodipine) 5 mg PO once bb 04:27 Drug: NS 0.9% 500 ml Route: IV; Rate: bolus; Site: right forearm; bb 05:30 Follow up: IV Status: Completed infusion; IV Intake: 500ml bb 04:27 Drug: Ketorolac 30 mg Route: IVP; Site: right forearm; bb 05:59 Follow up: Response: No adverse reaction bb 05:59 Follow up: Response: No adverse reaction bb 04:27 Drug: Benadryl (diphenhydrAMINE) 50 mg Route: IVP; Site: right forearm; bb 05:59 Follow up: Response: No adverse reaction bb 04:27 Drug: Reglan (metoCLOPramide) 10 mg Route: IVP; Site: right forearm; bb 05:59 Follow up: Response: No adverse reaction bb Intake: 05:30 IV: 500ml; Total: 500ml. bb Outcome: 06:21 Discharge ordered by . cherrie 06:47 Discharged to home ambulatory. bb 06:47 Condition: stable 06:47 Discharge instructions given to patient, Instructed on discharge instructions, follow up and referral plans. medication usage, Demonstrated understanding of instructions, follow-up care, medications, Prescriptions given X 3. 06:48 Patient left the ED. bb Signatures: Dispatcher [employer] Fahad Suarez MD MD cha Ballard, Brenda, RN RN Jorden Ayala Jessica ja2
[2021-09-12 07:36] VITALS: TEMP 97.3
[2021-09-12 07:38] VITALS: BP 150/82; O2SAT 100
--- NOTE | 2021-09-12 09:21 | RAD REPORT ---
EXAM DESCRIPTION: Neck Angio CLINICAL HISTORY: 46 years Female NECK PAIN TECHNIQUE: Following dynamic intravenous nonionic contrast infusion, multiple axial helical CT angio graphic images of the neck with multiplanar reformation, 3D and MIP reconstructions were performed. All CT scans at this facility use dose modulation, iterative reconstruction, and/or weight based dos ing when appropriate to reduce radiation dose to as low as reasonably achievable. Stenosis measuremen ts performed using NASCET criteria. COMPARISON: None. FINDINGS: LEFT Subclavian artery: No stenosis or occlusion. Vertebral artery: No stenosis, dissection or occlusion. Common carotid artery: No stenosis, dissection or occlusion. Internal carotid: No stenosis, dissection or occlusion. External carotid: No stenosis or occlusion. RIGHT Subclavian artery: No stenosis or occlusion. Vertebral artery: No stenosis, dissection or occlusion. Common carotid artery: No stenosis, dissection or occlusion. Internal carotid: No stenosis, dissection or occlusion. External carotid: No stenosis or occlusion. Other: Multilevel degenerative changes. Lung apices are clear. IMPRESSION: 1. No acute cervical vascular pathology. 2. No hemodynamically significant carotid stenosis. Electronically signed by: Gurpreet Watkins MD 09/12/2021 6:08 AM CDT Due to temporary technical issues with the PACS/Fluency reporting system, reports are being signed by the in house radiologist without review as a courtesy to ensure prompt reporting. The interpreting r adiologist is fully responsible for the content of the report.
--- NOTE | 2021-09-12 12:06 | RAD REPORT ---
EXAM DESCRIPTION: CTA Head with Contrast 09/12/2021 at 4: 45 AM CLINICAL HISTORY: Headache, new or worsening, positional COMPARISON: CT Head/Brain Without Contrast 09/12/2021 at 4:45 AM TECHNIQUE: Head CTA axial images acquired after IV contrast. Coronal and sagittal CTA MIPs and MPRs created. Exam performed according to departmental dose-optimization program which includes automated exposure control, adjustment of mA and/or kV according to patient size, and/or use of iterative recon struction technique. FINDINGS: Both intracranial vertebral, basilar, and both posterior cerebral arteries unremarkable. Both intracranial internal carotid, both middle cerebral, anterior communicating, and both anterior c erebral arteries unremarkable. No evidence of large intracranial arterial occlusion, aneurysm, or AVM. IMPRESSION: Unremarkable CTA Head. Electronically signed by: Lauro Adan MD 09/12/2021 6:07 AM CDT Due to temporary technical issues with the PACS/Fluency reporting system, reports are being signed by the in house radiologists without review as a courtesy to insure prompt reporting. The interpreting radiologist is fully responsible for the content of the report.
--- NOTE | 2021-09-12 12:12 | RAD REPORT ---
EXAM DESCRIPTION: CT Head Without Intravenous Contrast CLINICAL HISTORY: The patient is 46 years old and is Female; Headache, new or worsening, positional TECHNIQUE: Axial computed tomography images of the head/brain without intravenous contrast. Sagitt al and coronal reformatted images were created and reviewed. This CT exam was performed using one o r more of the following dose reduction techniques: automated exposure control, adjustment of the mA and/or kV according to patient size, and/or use of iterative reconstruction technique. COMPARISON: No relevant prior studies available. FINDINGS: Brain: Unremarkable. No hemorrhage. No significant white matter disease. No edema. Ventricles: Unremarkable. No ventriculomegaly. Bones/joints: Unremarkable. No acute skull fracture. Soft tissues: Unremarkable. Sinuses: Unremarkable as visualized. No acute sinusitis. Mastoid air cells: No significant mastoid fluid. IMPRESSION: No acute intracranial findings. No hemorrhage. Electronically signed by: Destiney Clark MD 09/12/2021 5:49 AM CDT Due to temporary technical issues with the PACS/Fluency reporting system, reports are being signed by the in house radiologists without review as a courtesy to insure prompt reporting. The interpreting radiologist is fully responsible for the content of the report.
== END 2021-09-12 06:48 | disposition home or self-care (01) ==
LOC: ER 01:44
DX: R51.9 Headache, unspecified (principal); I10 Essential (primary) hypertension; E11.9 Type 2 diabetes mellitus without complications; Z88.5 Allergy status to narcotic agent
CPT/HCPCS: 85025; 36415; 82565; 80053; 70450; 70496; 70498; Q9967; J2765; J1200; J7030; 96361; 96374; 96375; 99284